=== PATIENT | male | born 1995 | race Caucasian/White ===

== ENCOUNTER 2023-04-08 22:00 | Emergency (ER) | payer OTHER, SELFPAY ==
[2023-04-08 22:15] VITALS: BP 131/80; PULSE 92; RESP 16; TEMP 37.3; O2SAT 95; BMI 25.8
[2023-04-08 23:03] LABS: PCR FLU A Negative PCR FLU A (Negative); PCR FLU B Negative PCR FLU B (Negative); PCR RSV Negative PCR RSV (Negative)
[2023-04-08 23:06] LABS: SARS PCR* Negative SARS-CoV-2 (Negative)
--- NOTE | 2023-04-08 23:15 | ED.GENADULT ---
HPI - General Adult General Chief complaint: Cough Stated complaint: Cough Time Seen by Provider: 04/08/23 23:07 History of Present Illness HPI narrative: This 27-year-old male comes in with his mother and reports upper respiratory symptoms for the past 3 days. This includes a cough, mild sore throat, and some nasal congestion. He does not report any shortness of breath. He arrives here with normal vital signs. He does report some pain in his chest when coughing. Related Data Home Medications Medication Instructions Recorded Confirmed bupropion HCl 150 mg 24 hr tablet, 150 mg PO DAILY 04/08/23 04/08/23 extended release bupropion HCl 300 mg 24 hr tablet, 300 mg PO DAILY 04/08/23 04/08/23 extended release buspirone 10 mg tablet 10 mg PO BID 04/08/23 04/08/23 Allergies Allergy/AdvReac Type Severity Reaction Status Date / Time amoxicillin Allergy Intermediate Verified 04/08/23 22:14 Review of Systems Status of ROS: Reports: 10 or more systems reviewed and unremarkable except as noted in History and below Narrative: Constitutional: No fevers, no weight gain or loss. Eyes: No discharge. No vision changes. HENT: No ear pain. Mild sore throat and some nasal congestion. Cardiovascular: No palpitations. Respiratory: No shortness of breath, no wheezes, no cough. Gastrointestinal: No abdominal pain, no vomiting, no diarrhea. Genitourinary: No dysuria, no hematuria. Musculoskeletal: Normal range of motion. Skin: No rashes, no pruritis. Neurological: No dizziness, weakness, sensory change, speech change. Endo/Heme/Allergies: No bruising or bleeding. No polydipsia. Pysch: no suicidality, no anxiety, no insomnia. All other systems reviewed and are negative. [facility] Social History Smoking Status: Never smoker Exam Narrative: Exam Narrative: Constitutional: Well-developed, well-nourished, no acute distress. HEENT: Normocephalic, atraumatic. Mild pharyngeal erythema without tonsillar exudate or hypertrophy. Neck: Normal range of motion. Nontender. Supple. Heart: Regular. No murmurs. Normal rate. Intact distal pulses. Lungs: Clear to auscultation. No chest discomfort. No wheezes, rhonchi, or rales. Abdomen: Normal bowel sounds. Nontender. No rebound tenderness. Genitalia: Deferred. Back: No midline tenderness. Normal range of motion. Extremities: Normal range of motion. No injury. Skin: Intact. No rash. Warm. No erythema or pallor. Neurologic: No altered sensation. No weakness. Alert and oriented. Psychiatric: No suicidality. No anxiety or depression. No insomnia. Nursing notes and vitals signs are reviewed. Const: Vital Signs, click to edit/add: Vital Signs - 24 hr 04/08/23 22:15 Temperature 99.1 F Pulse Rate [Pulse Oximeter] 92 Respiratory Rate 16 [facility] 131/80 Pulse Oximetry 95 Oxygen Delivery Me thod Room Air Course Vital Signs Vital signs: Initial Vital Signs Temperature 99.1 F 04/08/23 22:15 Temperature Source Temporal Artery Scan 04/08/23 22:15 Pulse Rate 92 04/08/23 22:15 Respiratory Rate 16 04/08/23 22:15 Blood Pressure 131/80 04/08/23 22:15 Blood Pressure Mean 97 04/08/23 22:15 Blood Pressure Position Sitting 04/08/23 22:15 Pulse Oximetry 95 04/08/23 22:15 Oxygen Delivery Method Room Air 04/08/23 22:15 Vital Signs Temperature 99.1 F 04/08/23 22:15 Pulse Rate 92 04/08/23 22:15 Respiratory Rate 16 04/08/23 22:15 Blood Pressure 131/80 04/08/23 22:15 Pulse Oximetry 95 04/08/23 22:15 Oxygen Delivery Method Room Air 04/08/23 22:15 Temperature 99.1 F 04/08/23 22:15 Pulse Rate 92 04/08/23 22:15 Respiratory Rate 16 04/08/23 22:15 Blood Pressure 131/80 04/08/23 22:15 Pulse Oximetry 95 04/08/23 22:15 Oxygen Delivery Method Room Air 04/08/23 22:15 Medical Decision Making MDM Narrative Medical decision making narrative: Nasal pharyngeal swab returns negative for COVID, influenza, and RSV. This patient likely has some other viral upper respiratory infection. His exam is reassuring at this time. He did receive an oral dose of dexamethasone 10 mg and a prescription for some tablets of Tylenol 3. Lab Data Labs: Lab Results 04/08/23 Range/Units 22:20 SARS-CoV-2 (PCR) Negative SARS-CoV-2 (Negative) Influenza Type A (PCR) Negative PCR FLU A (Negative) Influenza Type B (PCR) Negative PCR FLU B (Negative) RSV (PCR) Negative PCR RSV (Negative) Discharge Plan Discharge Clinical Impression: Acute upper respiratory infection Patient Disposition: Home, Self-Care Condition: Stable Additional Instructions: Take medication as needed and indicated. Follow up with MD or return if worsening. Prescriptions: No Action buspirone 10 mg tablet 10 mg PO BID bupropion HCl 300 mg tablet extended release 24 hr 300 mg PO DAILY bupropion HCl 150 mg tablet extended release 24 hr 150 mg PO DAILY Follow Up/Referrals: Danial Tucker MD [Primary Care Provider] - Stand Alone Forms: [employer] Info Instructions
[2023-04-08] MEDS: dexAMETHasone 10 MG/ML inj PO (23:20)
== END 2023-04-08 23:28 | disposition home or self-care (01) ==
LOC: ED 23:25
PROVIDERS: Emergency Provider Emergency Medicine Emergency Medical Services
DX: J06.9 Acute upper respiratory infection, unspecified (principal)
CPT/HCPCS: 87631; 99283; 99284; J1100